=== PATIENT | female | born 1990 | race Caucasian/White ===

== ENCOUNTER 2022-06-05 21:19 | Emergency (ER) | payer MEDICARE, MEDICAID, SELFPAY ==
--- NOTE | ~2022-06-05 | XR_ITS ---
EXAMINATION: XR FOOT, RIGHT CLINICAL INFORMATION: Pain. Unable to bear weight. COMPARISON: None TECHNIQUE: AP, lateral, and oblique views of the right foot. FINDINGS: There is oblique fracture of the fifth metatarsal shaft with dorsal medial displacement of the distal fracture fragment by one shaft width. Minimal comminution along the margins. Slight foreshortening (3 mm). Surrounding soft tissues are edematous. No additional fractures are identified. Lisfranc alignment is normal. Joint spaces appear well-preserved. XR/XR foot RT min 3V IMPRESSION: Oblique, displaced fracture of the fifth metatarsal shaft.
[2022-06-05 21:48] VITALS: BP 109/67; PULSE 81; RESP 16; O2SAT 98; BMI 28.1
--- NOTE | 2022-06-05 22:14 | ED_ITS ---
HPI - Extremity Injury (Lower) General Chief Complaint: Extremity Injury, Lower Stated Complaint: R ankle pain Time Seen by Provider: 06/05/22 22:01 Source: patient Mode of arrival: ambulatory History of Present Illness HPI Narrative: 32-year-old female who presents with forced plantar flexion of the right foot and significant pain over the 5th and 4th metatarsals and denies any pain at the ankle. Related Data Allergies Allergy/AdvReac Type Severity Reaction Status Date / Time banana [BANANA] Allergy Severe ANAPHYLAXIS Unverified 08/14/20 15:50 povidone-iodine Allergy Unknown RASH Unverified 08/14/20 15:50 [From BETADINE] tree nut [TREE NUT] Allergy Unknown ANAPHYLAXIS Unverified 08/14/20 15:50 orange [ORANGE] AdvReac Unknown VOMITING Unverified 08/14/20 15:50 ALL FRUIT Allergy Unknown NAUSEA, Uncoded 08/14/20 15:50 ITCHY From BETADINE Allergy Unknown RASH Uncoded 08/14/20 15:50 Review of Systems Review of Systems: Pertinent positives and negatives as stated in HPI 10 point review of systems is otherwise negative. [facility] Past Medical History Source: nursing notes reviewed Social History Social History Advance Directives: No Physical Exam Vital Signs: Vital Signs: Last Vital Signs Pulse 81 06/05/22 21:48 Resp 16 06/05/22 21:48 BP 109/67 06/05/22 21:48 Pulse Ox 98 06/05/22 21:48 O2 Del Method 06/05/22 21:48 BMI result Body Mass Index 28.1 VITAL SIGNS: Reviewed. GENERAL: Well developed, well nourished, in no acute distress. HEAD: Normocephalic/atraumatic EYES: PERRLA, EOMI OROPHARYNX: no oral lesions noted, posterior pharynx clear LUNGS: Normal breath sounds. No adventitious sounds or accessory muscle use. SpO2<98> CARDIOVASCULAR: Regular rate and rhythm without noted murmurs ABDOMEN: Soft, non-tender, non-distended with bowel sounds. MUSCULOSKELETAL: No tenderness, deformities, or effusions noted on gross inspection. EXTREMITIES: No cyanosis, clubbing or edema; RIGHT FOOT: No pain at either medial/lateral malleoli, no pain on palpation over the Achilles, there is pain over the midfoot as well as the specific 4th and 5th metatarsals. SKIN: Inspection of the skin reveals no rashes NEUROLOGIC: Alert and oriented x 4. Course Course Course Narrative: 32-year-old female with history and clinical presentation consistent with suspect fracture of 4th and 5th metatarsal, or pain secondary to force plantar flexion. Review investigations demonstrates oblique, displaced fracture the 5th metatarsal shaft. Patient placed in walking boot and given crutches and instructions for nonweightbearing. Her pain is well controlled at this time and all results were discussed her at bedside. Discharge Plan Discharge Clinical Impression: Fracture of fifth metatarsal bone of right foot Patient Disposition: Home, Self-Care Instructions: Walking Boot (ED), Crutch Instructions (ED), Foot Fracture in Adults (ED) Additional Instructions: 1. Recommend [id number] Tylenol/ibuprofen as needed for pain control. Apply ice to unexposed skin for 10-15 minutes, 3 to 4 times a day. Keep extremity elevated when possible in do not stand for more than 20 minutes and do not bear weight on the right foot. 2. You have been provided with a referral to call the office of our orthopedic on-call surgeon on Tuesday. They will instruct you further in terms of an appointment and plans. Return to the ER for worsening symptoms. Referrals: Jenn Womack PA-C [Primary Care Provider] - Mainor Castro MD [Physician] - (Right 5th metatarsal displaced, closed shaft fracture. Patient placed in walking boot, nonweightbearing, crutches were provided.) Stand Alone Forms: Work/School Release
[2022-06-06 00:11] VITALS: BP 110/62; PULSE 75; RESP 18; TEMP 36.7; O2SAT 99
== END 2022-06-06 00:12 | disposition home or self-care (01) ==
PROVIDERS: Emergency Provider Student in an Organized Health Care Education/Training Program; PCP Physician Assistant Medical
DX: S92.351A Displaced fracture of fifth metatarsal bone, right foot, initial encounter for closed fracture (principal); X50.1XXA Overexertion from prolonged static or awkward postures, initial encounter; Y93.9 Activity, unspecified; Y92.9 Unspecified place or not applicable; Y99.9 Unspecified external cause status
CPT/HCPCS: 73630; 99282; 99283